=== PATIENT | female | born 2000 | race Caucasian/White ===

== ENCOUNTER → 2019-12-25 | Outpatient (CLI) | payer OTHER ==
--- NOTE | 2019-12-25 12:15 | KCIC ---
Examination: MRI of the right hip without contrast HISTORY: History of right hip pain COMPARISON: None available technique: Multiplanar, difficult MR imaging of the right hip was performed without contrast. FINDINGS: The attachment of the hamstring tendon to the ischial tuberosity, attachment of the gluteal tendons to the greater trochanter, attachment of the iliopsoas tendon to the lesser trochanter and the attachment of the rectus femoris tendon to the anterior inferior iliac spine grossly appears intact. The right femoral head is within the acetabulum. The visualized labrum grossly appears unremarkable. IMPRESSION: No evidence of internal derangement of the right hip.If pain persists, consider MR arthrogram for further evaluation. Electronically signed by: Mj Hurtado MD (12/25/2019 12:11 PM) [id number]
== END ==
LOC: KCIC MRI 10:30
PROVIDERS: ATTEND Family Medicine
DX: M25.551 Pain in right hip (principal)
CPT/HCPCS: 73721

== ENCOUNTER → 2020-01-20 | Outpatient (CLI) | payer OTHER ==
--- NOTE | 2020-01-20 10:32 | KCIC ---
LUMBAR SPINE WO CONTRAST Date: 01/20/2020 9:30 AM Indication: LUMBOSACRAL NEURITIS. Persistant low back pain into right hip in recent months. Comparison: None. Technique: Multi-planar multi-weighted magnetic resonance imaging of the lumbar spine was performed without intravenous contrast using the standard lumbar spine protocol. FINDINGS: The lumbar spine is normally aligned. No acute fracture. The intervertebral discs are normal. Bone marrow signal intensity is normal. The conus terminates at a normal level. No abnormal signal is seen within the visualized distal spinal cord. No clumping of intrathecal nerve roots. No soft tissue abnormality in the visualized abdomen or pelvis. T12-L1: No disc bulge. No facet arthropathy. No significant spinal stenosis or neural foraminal narrowing. L1-L2: No disc bulge. No facet arthropathy. No significant spinal stenosis or neural foraminal narrowing. L2-L3: No disc bulge. No facet arthropathy. No significant spinal stenosis or neural foraminal narrowing. L3-L4: No disc bulge. No facet arthropathy. No significant spinal stenosis or neural foraminal narrowing. L4-L5: No disc bulge. Mild facet arthropathy. No significant spinal stenosis or neural foraminal narrowing. L5-S1: No disc bulge. Mild facet arthropathy. No significant spinal stenosis or neural foraminal narrowing. IMPRESSION: Mild facet arthropathy at L4-5 and L5-S1. No significant spinal canal stenosis or neural foraminal narrowing. Electronically signed by: Jossue Suero MD (01/20/2020 10:29 AM) [id number]
== END ==
LOC: KCIC MRI 09:17
PROVIDERS: ATTEND Physician Assistant
DX: M47.27 Other spondylosis with radiculopathy, lumbosacral region (principal)
CPT/HCPCS: 72148